=== PATIENT | female | born 1990 | race Hispanic/Latino ===

== ENCOUNTER 2019-03-24 04:30 | Inpatient (IN) ==
[2019-03-24] MEDS ORDERED: PEPCID IV PRN (04:49)
[2019-03-24] MEDS ORDERED: STADOL IV PRN (04:49)
[2019-03-24] MEDS ORDERED: PEPCID PO ONE (04:49)
[2019-03-24] MEDS ORDERED: ZOFRAN IV PRN (04:49)
[2019-03-24] MEDS ORDERED: PEPCID PO PRN (04:49)
[2019-03-24] MEDS ORDERED: TYLENOL PO PRN (04:49)
[2019-03-24] MEDS ORDERED: KEFZOL 1 GM/D5W 1 GM/50 ML IVPB IV PRN (04:49)
[2019-03-24] MEDS ORDERED: REGLAN PO ONE (04:49)
[2019-03-24] MEDS ORDERED: LR 2,000 ML ONE (04:58)
[2019-03-24] MEDS ORDERED: PITOCIN 30 UNITS/NS 30 UNIT/500 ML IV.SOLN ONE (04:59)
[2019-03-24] MEDS ORDERED: LR 1,000 ML IV SCH (05:00)
[2019-03-24] MEDS ORDERED: SODIUM CHLORIDE 0.9% INJ SCH (05:00)
[2019-03-24] MEDS ORDERED: PITOCIN 30 UNITS/NS 30 UNIT/500 ML IV.SOLN IV SCH ×2 (05:00→08:00)
[2019-03-24] MEDS ORDERED: XYLOCAINE-MPF 1% INJ ONE (05:04)
[2019-03-24] MEDS ORDERED: MINERAL OIL MISC ONE (05:05)
[2019-03-24] MEDS ORDERED: AMPICILLIN 2 GM/NS 2 GM/100 ML IVPB ONE (05:05)
[2019-03-24] MEDS ORDERED: AMPICILLIN 2 GM/NS 2 GM/100 ML IVPB IV ONE (05:20)
[2019-03-24 05:26] LABS: BASO# 0.02 X1000 (0.0-0.2); BASO% 0.2 % (0.0-0.8); EOS# 0.02 X1000 (0.0-0.7); EOS% 0.2 % (0.0-10.0); HEMATOCRIT 38.9 % (37.0-47.0); HEMOGLOBIN 13.4 g/dL (12.0-16.0); IMM GRAN# 0.14 X1000 (0.0-0.04); IMM GRAN% 1.5 % (0.0-0.5); LYMPH# 1.62 X1000 (1.2-3.4); LYMPH% 16.8 % (20.5-51.1); MCH 31.6 PG (27-31); MCHC 34.4 g/dL (33-37); MCV 91.7 FL (81-99); MONO# 0.59 X1000 (0.11-0.59); MONO% 6.1 % (1.7-9.3); MPV 10.4 FL (7.4-10.4); NEUT# 7.25 X1000 (1.4-6.5); NEUT% 75.2 % (42.2-75.2); PLT 196 X1000 (130-400); RBC 4.24 XMIL (4.2-5.4); RDW 13.9 % (11.5-14.5); WBC 9.64 X1000 (4.8-10.8)
--- NOTE | 2019-03-24 05:34 | OB/GYN PROGRESS NOTE ---
Progress Note OB - . Patient Problems: Current Active Problems Problem Status Onset Language barrier affecting health care Acute Active labor at term Acute Insufficient care Acute OB Progress Note: Laboratory Results - last 24 hr 03/24/19 04:50 WBC 9.64 RBC 4.24 Hgb 13.4 Hct 38.9 MCV 91.7 MCH 31.6 H MCHC 34.4 RDW Std Deviation 13.9 Plt Count 196 MPV 10.4 Immature Gran % (Auto) 1.5 H Neut % (Auto) 75.2 Lymph % (Auto) 16.8 L Charles % (Auto) 6.1 Eos % (Auto) 0.2 Baso % (Auto) 0.2 Immature Gran # (Auto) 0.14 H Neut # (Auto) 7.25 H Lymph # (Auto) 1.62 Charles # (Auto) 0.59 Eos # (Auto) 0.02 Baso # (Auto) 0.02 28 yo [place] MF with no care and limited history obtained from spouse, presenting at 9 cm. She is now anterior rim/0/vertex with membranes flat over the head and no evidence of SROM. Tracing Cat I 135 bpm and VS normal 130s/70s. PN labs obtained CBC nl Presumptive Ampicillin infused ~0515 Expect
[2019-03-24 06:13] LABS: RAPID HIV PRESUMPTIVE NEGATIVE; RPR NON-REACTIVE (NONREACTIVE)
--- NOTE | 2019-03-24 07:01 | PROVIDER PROGRESS NOTE ---
Progress Note Pt is now completely dilated, JAMIE VSS AF FHRT category I with early decels Begin 2nd stage. Case d/w Dr. Og coming medical collections representative.
--- NOTE | 2019-03-24 07:16 | HISTORY AND PHYSICAL ---
ADMITTING DIAGNOSES: 1. Term-appearing , active labor. 2. Absent care. 3. Language barrier. HISTORY OF PRESENT ILLNESS: Shandra is a 28-year-old, 3, para 2-0-0-2, [place], female, presenting in active labor at 9 cm, accompanied by her spouse, neither of whom speak Ukrainian or Tu[place]. Language line was not useful in this setting, and limited history was obtained through her spouse, who spoke limited Ukrainian. At this dictation, heart tones are reactive and reassuring, category 1, baseline 135 with reactive accelerations. Contractions are irregular, every 3 to 5, well tolerated. Cervix on arrival at approximately 4:30 am was 9 cm, and at this dictation, she has dilated anterior rim with membranes flat over the head. Attempted artificial rupture of membranes was not tolerated, with no evidence of fluid leakage. Admitting laboratory includes normal CBC. OBSTETRIC HISTORY: Her gives no background of complications, medical or surgical. Specifically, there is no history of delivery. PAST MEDICAL HISTORY: Limited, apparently negative. PAST SURGICAL HISTORY: Apparently negative. ALLERGIES: Negative. FAMILY HISTORY: Noncontributory. SOCIAL HISTORY: Not available. PHYSICAL EXAMINATION: General: This is a neighboring woman in no other distress. Vital Signs: Blood pressure 135/75, temperature afebrile, pulse 90, respirations 18 and nonlabored. HEENT: Unremarkable. Neck: Supple. Thyroid normal. Chest: Clear to auscultation to the bases with normal respiratory effort. Cardiovascular: Regular rate and rhythm without abnormal sounds. Back: Without deformity or tenderness. Abdomen: Gravid, soft, nontender with fundus approaching the sternum, and estimated weight in someone of this short stature is approximately 3000 to 3200 grams. Extremities: No clubbing, cyanosis, or edema. Neurological: No focal deficits. Patellar deep tendon reflexes are 2+ and symmetric. Pelvic: Normal external genitalia, without lesions, discharge, active bleeding, or fluid. Vaginal exam is compromised by discomfort. Pelvimetry appears adequate. Vertex is at the 0 station. Variety of position difficult to palpate due to poor tolerance of the exam. There is an anterior right cervical rim. Membranes are flat over the head, and attempted artificial membrane rupture was not feasible. ASSESSMENT: 1. Apparent term , 3, para 2-0-0-2, with language barrier, no care, and expected vaginal delivery. 2. Ampicillin prophylaxis 2 grams given. 3. labs in progress. PLAN: Continue active labor management with initiation of second stage after completion of dilation. ALLA
[2019-03-24 07:49] LABS: UR AMPHETAMINES QUAL NONE DETECTED (NONE DETECT); UR BARBITUATES QUAL NONE DETECTED (NONE DETECT); UR BENZODIAZEPIN QUAL NONE DETECTED (NONE DETECT); UR CANNABINOIDS QUAL NONE DETECTED (NONE DETECT); UR COCAINE QUAL NONE DETECTED (NONE DETECT); UR METHADONE QUAL NONE DETECTED (NONE DETECT); UR METHAMPHETAMINE QUAL NONE DETECTED (NONE DETECT); UR OPIATES QUAL NONE DETECTED (NONE DETECT); UR OXYCODONE QUAL NONE DETECTED (NONE DETECT); UR PCP QUAL NONE DETECTED (NONE DETECT); UR PROPOXYPHENE QUAL NONE DETECTED (NONE DETECT); UR TCA QUAL NONE DETECTED (NONE DETECT)
[2019-03-24] MEDS ORDERED: PITOCIN IM PRN (08:00)
[2019-03-24] MEDS ORDERED: MINERAL OIL PO PRN (08:00)
[2019-03-24] MEDS ORDERED: BOOSTRIX VACCINE IM ONE (08:00)
[2019-03-24] MEDS ORDERED: BENADRYL PO PRN (08:00)
[2019-03-24] MEDS ORDERED: PERI MEDS (DERMOPLAST/NUPERCAINAL/TUCKS) MISC PRN (08:00)
[2019-03-24] MEDS ORDERED: M-M-R II VACCINE SUBQ ONE (08:00)
[2019-03-24] MEDS ORDERED: BENADRYL IV PRN (08:00)
[2019-03-24] MEDS ORDERED: XYLOCAINE-MPF 1% INJ PRN (08:00)
[2019-03-24] MEDS ORDERED: CYTOTEC PO PRN (08:00)
[2019-03-24] MEDS ORDERED: ATARAX PO PRN (08:00)
[2019-03-24] MEDS ORDERED: HYDROXYZINE IM PRN (08:00)
[2019-03-24] MEDS ORDERED: AMBIEN PO PRN (08:00)
[2019-03-24] MEDS ORDERED: PITOCIN 20 UNITS/NS 20 UNITS/1,000 ML IV.SOLN IV SCH (08:00)
[2019-03-24] MEDS: MOTRIN PO PRN ×2 (08:38→16:18)
--- NOTE | 2019-03-24 09:47 | OPERATIVE NOTE ---
PROCEDURE DATE: 03/24/2019 PROCEDURE: Spontaneous vaginal delivery. DESCRIPTION OF PROCEDURE: The patient progressed to complete and pushing, had a spontaneous vaginal delivery of an infant male weighing 7 pounds 3 ounces with Apgars of 9 and 9 at 6:59 a.m. on 03/24/2019 over intact perineum. Placenta was delivered intact with 3 vessel cord. Infant was bulb suctioned at the nose and mouth upon delivery. ANESTHESIA: None. COUNTS: All counts were counted and correct x2. ESTIMATED BLOOD LOSS: 150 mL.
[2019-03-24 15:22] LABS: RUBELLA SCREEN IMMUNE (IMMUNE)
[2019-03-24 17:30] LABS: HIV ANTIBODY SCREEN SEE COMMENTS
[2019-03-24] MEDS: PERICOLACE PO SCH (20:30)
[2019-03-25] MEDS: MOTRIN PO PRN ×3 (00:23→19:59)
--- NOTE | 2019-03-25 06:58 | OB/GYN PROGRESS NOTE ---
Progress Note OB - . Patient Problems: Current Active Problems Problem Status Onset Vaginal delivery Acute Language barrier affecting health care Acute Active labor at term Acute Insufficient care Acute OB Progress Note: Vital Signs - 24 hr 03/24/19 07:15 03/24/19 11:05 03/24/19 15:00 Temperature 96.4 F L 96 F L Pulse Rate 64 72 74 Respiratory Rate 18 20 20 Blood Pressure 114/55 99/52 105/56 O2 Sat by Pulse Oximetry 100 97 99 03/24/19 21:10 03/25/19 00:25 03/25/19 05:15 Temperature 96.5 F L 96.4 F L 96.7 F L Pulse Rate 69 61 69 Respiratory Rate 16 18 16 Blood Pressure 95/53 119/79 96/51 O2 Sat by Pulse Oximetry 99 98 98 Laboratory Results - last 24 hr 03/24/19 03/24/19 03/24/19 04:45 04:50 06:13 Urine Opiates Screen NONE DETECTED Ur Oxycodone Screen NONE DETECTED Urine Methadone Screen NONE DETECTED U Propoxyphene Qual NONE DETECTED Ur Barbituates Screen NONE DETECTED Ur Tricyclics Screen NONE DETECTED Ur Phencyclidine Scrn NONE DETECTED Ur Amphetamines Screen NONE DETECTED U Methamphetamines Scrn NONE DETECTED U Benzodiazepines Scrn NONE DETECTED Urine Cocaine Screen NONE DETECTED U Cannabinoids Screen NONE DETECTED HIV 1&2 Antibody Screen SEE COMMENTS Rubella Immunity Screen IMMUNE HPI: Pt seen and examined. Currently w/o complaints. Denies pain. Ambulating and urinating without difficulty. Tolerating regular diet. +Bottle feeding, decreased lochia. Denies fever/chills/N/V VS: Please see above GEN: NAD CV: RRR +S1S2 RESP: CTA b/l ABD: soft NTTP, FF at umbilicus EXT: neg CT LAB: pending ASSESSMENT: 28 yo PPD#1 s/p PLAN: -continue PO pain mgt -continue regular diet -OOB-->ambulation -SW consult for no care -continue routine care -likely d/c home tomorrow
[2019-03-25 08:09] LABS: HEPATITIS B SURFACE ANTIGEN SEE COMMENTS
[2019-03-25 08:31] LABS: HEMATOCRIT 35.9 % (37.0-47.0); MCH 31.1 PG (27-31); MCHC 33.4 g/dL (33-37); MPV 10.3 FL (7.4-10.4); RBC 3.86 XMIL (4.2-5.4); RDW 14.1 % (11.5-14.5); WBC 11.35 X1000 (4.8-10.8)
[2019-03-25] MEDS: PERICOLACE PO SCH (21:04)
[2019-03-26] MEDS: MOTRIN PO PRN (04:40)
--- NOTE | 2019-03-26 08:31 | OB/GYN PROGRESS NOTE ---
Progress Note OB - . Patient Problems: Current Active Problems Problem Status Onset Vaginal delivery Acute Language barrier affecting health care Acute Active labor at term Acute Insufficient care Acute OB Progress Note: Vital Signs - 24 hr 03/25/19 11:47 03/25/19 16:57 03/25/19 19:49 Temperature 96.2 F L 98.5 F 96.7 F L Pulse Rate 73 62 63 Respiratory Rate 14 14 18 Blood Pressure 104/51 111/59 99/51 O2 Sat by Pulse Oximetry 97 96 97 03/25/19 23:48 Temperature 97.0 F L Pulse Rate 69 Respiratory Rate 18 Blood Pressure 89/52 O2 Sat by Pulse Oximetry 97 Laboratory Results - last 24 hr 03/24/19 03/25/19 04:45 08:20 WBC 11.35 H RBC 3.86 L Hgb 12.0 Hct 35.9 L MCV 93.0 MCH 31.1 H MCHC 33.4 RDW Std Deviation 14.1 Plt Count 194 MPV 10.3 Ur Chlamydia/GC DNA SEE COMMENTS HPI: Pt resting in bed eating. Currently w/o complaints. Denies pain. Ambulating and urinating without difficulty. Tolerating regular diet. +Bottle feeding, decreased lochia, bladder working well. GEN: NAD ABD: soft NTTP, FF at umbilicus EXT: neg CT HGB 12 ASSESSMENT: 28 yo PPD#2 s/p PLAN: -continue PO pain mgt -continue regular diet -OOB-->ambulation -SW consult done -continue routine care -d/c home today, discharge instructions given.
[2019-03-26 10:12] VITALS: BP 102/57
--- NOTE | 2019-03-26 19:57 | DISCHARGE SUMMARY ---
ADMISSION DATE: 03/24/2019 DISCHARGE DATE: 03/26/2019 PRIMARY DIAGNOSIS: Term , with delivery of a liveborn infant. SECONDARY DIAGNOSES: 1. No care. 2. Language barrier. PROCEDURE PERFORMED: Spontaneous vaginal delivery on 03/24. REASON FOR HOSPITALIZATION: The patient is a 28-year-old G3, P3, who presented in active labor at 9 cm and delivered a live shortly after. It was a male infant weighing 7 pounds 3 ounces, with scores of 9 and 9. The patient did well and by day 2 was ambulating well, urinating well, had light bleeding. She was bottle-feeding her infant. Pain was well controlled. DISPOSITION: Discharge instructions were given. Medicines for home were ibuprofen 800 mg q.8 hours for pain. Disposition is to home. The patient is instructed to follow up with Dr. Ahumada in 2 weeks and 6 weeks for care. cc: Gerard Blevins DO
== END 2019-03-26 10:55 | disposition home or self-care (01) | DRG 807 ==
LOC: P.OPLD 04:30 → P.LD 04:41
PROVIDERS: ADMIT Obstetrics & Gynecology; ATTEND Obstetrics & Gynecology
CPT/HCPCS: 80104; 80301; 80305; 82947; 85025; 85027; 86592; 86701; 86703; 86762; 86850; 86900; 86901; 87340; 87389; 87390; 87491; 87591; 90715; A9270; G0431; G0434; G0477; J0290; J2590; J7120